=== PATIENT | female | born 1990 | race Caucasian/White ===

== ENCOUNTER → 2019-06-22 | Emergency (ER) | payer OTHER ==
[~2019-06-22] VITALS: Ht 162.6 cm; Wt 61.2 kg
== END | disposition home or self-care (01) ==
LOC: ER 14:48
DX: A90 Dengue fever [classical dengue] (principal)

== ENCOUNTER 2022-03-31 18:51 | Emergency (ER) | payer OTHER ==
[~2022-03-31] VITALS: Ht 162.6 cm; Wt 59.0 kg
== END 2022-03-31 21:32 | disposition home or self-care (01) ==
LOC: ER 18:51
DX: N39.0 Urinary tract infection, site not specified (principal); R30.0 Dysuria